=== PATIENT | male | born 1945 ===

== ENCOUNTER 2024-12-31 08:56 | Outpatient (CLI) | payer MEDICARE, OTHER, SELFPAY ==
--- NOTE | ~2024-12-31 | US_ITS ---
US right upper quadrant Indication: Elevated liver enzymes Comparison: None Technique: Wise-scale and color Doppler images were obtained. Findings: LIVER: Mild increased echogenicity of the liver. Mild nodularity of the liver contours. . GALLBLADDER/BILIARY: Trace pericholecystic fluid. With gallbladder wall thickening measuring 4 mm although there is no cholelithiasis identified. CBD 3.2 mm. [place] sign negative. PANCREAS: Pancreas limited by bowel gas. Right Kidney: Right kidney was not imaged Incidental small right pleural effusion. Impression: 1. Mild cirrhotic disease of the liver suspected. 2. Thickening of the gallbladder wall with minimal pericholecystic fluid but no cholelithiasis. Findings may be reactive however if there is concern nuclear medicine HIDA scan is suggested Reviewed, dictated and finalized at location P. Impression: 1. Mild cirrhotic disease of the liver suspected. 2. Thickening of the gallbladder wall with minimal pericholecystic fluid but no cholelithiasis. Findings may be reactive however if there is concern nuclear m edicine HIDA scan is suggested
== END 2024-12-31 08:57 | disposition home or self-care (01) ==
LOC: MICIMG 08:59
PROVIDERS: PCP Internal Medicine; Visit Provider Internal Medicine
DX: R74.8 Abnormal levels of other serum enzymes (principal)
CPT/HCPCS: 76705